=== PATIENT | female | born 1990 | race Caucasian/White ===

== ENCOUNTER 2024-10-20 10:08 | Day surgery (SDC) | payer MEDICAID ==
[2024-10-20] VITALS (12 sets, daily range): BP systolic 125–155; BP diastolic 65–97; PULSE 63–98; RESP 10–21; TEMP 98.6; O2SAT 93–99
[~2024-10-20] VITALS: Ht 175.3 cm; Wt 159.0 kg
[~2024-10-20 10:08] MED LIST: BUDE10.2 INH; BUPR100T15 PO; FERR325T7; LAMO100T; LISI5TAB22 PO; LURA40TA4; METF-900; ONDA-245 PO; PANT20TA18; PROP10TA10; ROPI0.2544 PO; SEMA2.4P; SPIR100T5; TIRZ5PEN3
[2024-10-20] MEDS ORDERED: fentaNYL/PF 50MCG/1 ML 2ML syringe ONE ×2 (11:40→11:51)
[2024-10-20] MEDS ORDERED: MIDAZolam 1 MG/ML 5ML VIAL ONE ×2 (11:41→11:51)
[2024-10-20] MEDS ORDERED: simethicone 40mg/0.6ml oral drops 30ml ONE (11:49)
== END 2024-10-20 13:03 | disposition home or self-care (01) ==
LOC: GI LAB 10:08
PROVIDERS: ATTEND Internal Medicine Gastroenterology
DX: Z09 Encounter for follow-up examination after completed treatment for conditions other than malignant neoplasm (principal); Z86.0100 Personal history of colon polyps, unspecified; K64.8 Other hemorrhoids
CPT/HCPCS: 45378; 99152; J2250; J3010; J7030; Z7512; 99153; A4620